=== PATIENT | male | born 1945 | race African-American/Black ===

== ENCOUNTER 2017-01-11 16:37 | Inpatient (IN) | payer OTHER ==
[2017-01-11 18:34] VITALS: BMI 21.2
--- NOTE | 2017-01-11 19:42 | HP ---
CIWA Score - CIWA Score Nausea/Vomitin-Mild Nausea/No Vomiting (RELEASED FROM [facility] 01/11) Muscle Tremors: 3 Anxiety: 3 Agitation: 3 Paroxysmal Sweats: 1-Minimal Palms Moist Orientation: 3-Disoriented Date>2 days Tacttile Disturbances: 0-None Auditory Disturbances: 0-None Visual Disturbances: 0-None Headache: 2-Mild CIWA-Ar Total Score: 16 Admission ROS BHS - HPI Chief Complaint: WITHDRAWAL SX Allergies/Adverse Reactions: Allergies Allergy/AdvReac Type Severity Reaction Status Date / Time pork derived (porcine) Allergy Intermediate Vomiting Verified 01/11/17 18:36 Pork/Porcine Containing Allergy Intermediate Vomiting Verified 01/11/17 18:36 Products History of Present Illness: 71 YEARS OLD MALE WITH LONG HISTORY OF ALCOHOL DEPENDENCE, HAS HYPERTENSION, ATRIAL FIBRILLATION, BPH, DEPRESSION IS ADMITTED TO DETOX DISCHARGED FROM [facility] 01/11/17, BEEN TREATED FOR ALCOHOL INTOXICATION WELL ATRIAL FIBRILATION AND HYERTENSION BPH AND DEPRESSION Exam Limitations: No Limitations - Ebola screening Have you traveled outside of the country in the last 21 days: No Have you had contact with anyone from an Ebola affected area: No Have you been sick,other than usual withdrawal symptoms: No Do you have a fever: No - Review of Systems Constitutional: Chills, Loss of Appetite, Changes in sleep, Unexplained wgt Loss EENT: reports: No Symptoms Reported Respiratory: reports: No Symptoms reported Cardiac: reports: Irregular Heart Rate, Palpitations GI: reports: Nausea, Poor Appetite, Poor Fluid Intake, Abdominal cramping : reports: Dysuria Musculoskeletal: reports: No Symptoms Reported Integumentary: reports: Dryness Neuro: reports: Tremors Endocrine: reports: No Symptoms Reported Hematology: reports: Blood Clots (HIGH RISK) Psychiatric: reports: Judgement Intact, Depressed Other Systems: Reviewed and Negative Patient History - Patient Medical History Hx Anemia: Yes Hx Asthma: No Hx Chronic Obstructive Pulmonary Disease (COPD): No Hx Cancer: No Hx Cardiac Disorders: No Hx Congestive Heart Failure: No Hx Hypertension: No Hx Hypercholesterolemia: No Hx Pacemaker: No HX Cerebrovascular Accident: No Hx Seizures: No Hx Dementia: No Hx Diabetes: No Hx Gastrointestinal Disorders: No Hx Liver Disease: No Hx Genitourinary Disorders: No Hx Sexually Transmitted Disorders: No Hx Renal Disease (ESRD): No Hx Thyroid Disease: No Hx Human Immunodeficiency Virus (HIV): No Hx Hepatitis C: No Hx Depression: Yes Hx Suicide Attempt: No Hx Bipolar Disorder: No Hx Schizophrenia: No - Patient Surgical History Past Surgical History: No Hx Neurologic Surgery: No Hx Cataract Extraction: No Hx Cardiac Surgery: No Hx Lung Surgery: No Hx Breast Surgery: No Hx Breast Biopsy: No Hx Abdominal Surgery: Yes (RIGHT HERNIA REPAIRED 50 YEARS OLD) Hx Appendectomy: No Hx Cholecystectomy: No Hx Genitourinary Surgery: No Hx Orthopedic Surgery: No Anesthesia Reaction: No - PPD History Previous Implant?: Yes Documented Results: Negative w/o proof Implanted On Prior [facility] Admission?: No PPD to be Administered?: Yes - Smoking Cessation Smoking history: Never smoked Aproximately how many cigarettes per day: 0 Hx Chewing Tobacco Use: No Initiated information on smoking cessation: No - Substance & Tx. History Hx Alcohol Use: Yes Hx Substance Use: No Substance Use Type: Alcohol Hx Substance Use Treatment: Yes - Substances Abused Alcohol Route: Oral Frequency: Daily Amount used: LIQUOR- 2 PINTS Age of first use: 3 Date of Last Use: 01/10/17 Family Disease History - Family Disease History Family Disease History: Other: Father (NO CONTACT X 20 YEARS), Mother () Admission Physical Exam BHS - Vital Signs Vital Signs: Vital Signs - 24 hr 01/11/17 18:30 Temperature 97.3 F L Pulse Rate 101 H Respiratory 20 Rate Blood Pressure 154/77 - Physical General Appearance: Yes: Appropriately Dressed, Mild Distress, Thin, Tremorous, Irritable, Sweating, Anxious HEENTM: Yes: Hearing grossly Normal, Normal ENT Inspection, Normocephalic, Normal Voice Respiratory: Yes: Chest Non-Tender, Lungs Clear, Normal Breath Sounds, No Respiratory Distress, No Accessory Muscle Use Neck: Yes: Supple, Trachea in good position Breast: Yes: Breasts Symetrical Cardiology: Yes: S1, S2, Tachycardia, Irregularly Irregular, Other (ATRIAL FIBRILATION) Abdominal: Yes: Non Tender, Soft Genitourinary: Yes: Within Normal Limits Back: Yes: Normal Inspection Musculoskeletal: Yes: full range of Motion, Gait Steady, Joint Stiffness (KNEES) Extremities: Yes: Normal Range of Motion, Non-Tender, Tremors Neurological: Yes: Alert, Motor Strength 5/5, Normal Response, Depressed Affect Integumentary: Yes: Dry, Warm Lymphatic: Yes: Within Normal Limits - Diagnostic (1) Alcohol dependence with uncomplicated withdrawal Current Visit: Yes Status: Acute (2) Hypertension Current Visit: Yes Status: Acute Qualifiers: Hypertension type: essential hypertension Qualified Code(s): I10 - Essential (primary) hypertension (3) Atrial fibrillation and flutter Current Visit: Yes Status: Acute (4) BPH (benign prostatic hyperplasia) Current Visit: Yes Status: Acute Qualifiers: Prostatic enlargement morphology: non-nodular Lower urinary tract symptom presence: symptoms present Qualified Code(s): N40.1 - Enlarged prostate with lower urinary tract symptoms (5) Tachyarrhythmia Current Visit: Yes Status: Acute Comment: ASPIRIN Cleared for Admission S - Detox or Rehab [facility] Level of Care: Medically Managed Detox Regimen/Protocol: Librium [facility] Breath Alcohol Content Breath Alcohol Content: 0 Urine Drug Screen - Results Urine Drug Screen Results: BZO-Benzodiazepines
[2017-01-11] MEDS ORDERED: ACETAMINOPHEN 325 MG TABLET (FP) PO PRN (19:51)
[2017-01-11] MEDS ORDERED: guaiFENesin/D-METHORPHAN HB 10 ML UNIT-DOSE CUPS PO PRN (19:51)
[2017-01-11] MEDS ORDERED: diphenhydrAMINE HCL 50 MG CAPSULE PO PRN (19:51)
[2017-01-11] MEDS ORDERED: MAGNESIUM CITRATE 300 ML BOTTLE PO PRN (19:51)
[2017-01-11] MEDS ORDERED: chlordiazePOXIDE HCL 25 MG CAPSULE PO PRN (19:51)
[2017-01-11] MEDS ORDERED: MAGNESIUM HYDROX 2400MG/30ML ORAL SUSPENSION 30 ML CUP PO PRN (19:51)
[2017-01-11] MEDS ORDERED: LOPERAMIDE HCL 2 MG CAPSULE PO PRN (19:51)
[2017-01-11] MEDS ORDERED: hydrOXYzine PAMOATE 50 MG CAPSULE (FP) PO PRN (19:51)
[2017-01-11] MEDS ORDERED: P-EPHED 60MG/TRIPROLIDI 2.5MG TABLET PO PRN (19:51)
[2017-01-11] MEDS ORDERED: MAG HYDROX/AL HYDROX/SIMETH 30 ML UNIT-DOSE CUP PO PRN (19:51)
[2017-01-11] MEDS ORDERED: MENTHOL/PHENOL 1 EACH UD MM PRN (19:51)
[2017-01-11] MEDS ORDERED: COLLOIDAL OATMEAL 1 BAR EACH TP PRN (20:02)
[2017-01-11] MEDS: amLODIPine BESYLATE 5 MG TABLET (FP) PO SCH (22:31)
[2017-01-11] MEDS: THIAMINE HCL 100 MG TABLET (FP) PO SCH (22:32)
[2017-01-11 22:50] LABS: URINE APPEARANCE CLOUDY; URINE BILIRUBIN NEGATIVE (NEGATIVE); URINE BLOOD NEGATIVE (NEGATIVE); URINE COLOR YELLOW; URINE GLUCOSE (UA) NEGATIVE (NEGATIVE); URINE KETONE NEGATIVE (NEGATIVE); URINE NITRITE NEGATIVE (NEGATIVE); URINE PROTEIN NEGATIVE (NEGATIVE); URINE UROBILINOGEN NEGATIVE E.U./dl (0.2-1.0)
[2017-01-11 22:51] LABS: URINE LEUK ESTERASE 3+ (NEGATIVE)
[2017-01-11] MEDS: MINERAL OIL/PETROLAT/WATER TOPICAL CREAM 113 GM JAR TP SCH (22:55)
[2017-01-11 22:58] LABS: URINE BACTERIA RARE /hpf (NONE SEEN); URINE MUCUS RARE; URINE RBC 23 /hpf (0-3); URINE WBC 536 /hpf (3-5)
[2017-01-11] MEDS: chlordiazePOXIDE HCL 25 MG CAPSULE PO SCH (23:55)
[2017-01-12] MEDS: chlordiazePOXIDE HCL 25 MG CAPSULE PO SCH ×4 (05:18→22:17)
[2017-01-12 09:51] LABS: MCH 36.1 pg (25.7-33.7); MCHC 32.5 g/dl (32.0-35.9); MEAN PLT VOLUME 8.5 fl (7.5-11.1); PLATELET COUNT 254 K/MM3 (134-434); RDW 14.4 % (11.9-15.9); WHITE BLOOD COUNT 7.1 K/mm3 (4.0-10.0)
[2017-01-12] MEDS ORDERED: amLODIPine BESYLATE 5 MG TABLET (FP) PO SCH ×2 (10:00)
[2017-01-12] MEDS: amLODIPine BESYLATE 5 MG TABLET (FP) PO SCH (10:03)
[2017-01-12] MEDS: PRENATAL VITAMINS W/ FOLIC ACID TABLET (FP) PO SCH (10:03)
[2017-01-12] MEDS: ASPIRIN 81 MG CHEWABLE TABLETS PO SCH (10:03)
[2017-01-12 10:20] LABS: ALBUMIN 2.9 g/dl (3.4-5.0); ALK PHOS 79 U/L (45-117); ANION GAP 12 (8-16); BILIRUBIN,TOTAL 0.2 mg/dL (0.2-1.0); CALCIUM 8.9 mg/dL (8.5-10.1); CO2 26 mmol/L (21-32); CREATININE 0.8 mg/dL (0.7-1.3); GLUCOSE,RANDOM 110 mg/dL (74-106); SGOT/AST 22 U/L (15-37); SGPT/ALT 19 U/L (12-78); TOT PROT 6.8 g/dl (6.4-8.2)
--- NOTE | 2017-01-12 10:44 | EKG ---
Test Reason : Blood Pressure : / mmHG Vent. Rate : 083 BPM Atrial Rate : 083 BPM P-R Int : 134 ms QRS Dur : 068 ms QT Int : 404 ms P-R-T Axes : 062 037 060 degrees QTc Int : 474 ms SINUS RHYTHM PREMATURE VENTRICULAR COMPLEXES AND PREMATURE ATRIAL COMPLEX NONSPECIFIC ST AND T WAVE ABNORMALITY ABNORMAL ECG WHEN COMPARED WITH ECG OF 11-JAN-2017 21:06, NO SIGNIFICANT CHANGE WAS FOUND Confirmed by RUFINA GAMBOA, WISAM ([id number]) on 01/12/2017 10:44:39 AM Referred By: Confirmed By:WISAM ALMARAZ MD
--- NOTE | 2017-01-12 10:46 | EKG ---
Test Reason : Blood Pressure : / mmHG Vent. Rate : 091 BPM Atrial Rate : 091 BPM P-R Int : 132 ms QRS Dur : 070 ms QT Int : 408 ms P-R-T Axes : 068 038 046 degrees QTc Int : 501 ms SINUS RHYTHM WITH PREMATURE SUPRAVENTRICULAR COMPLEXES AND PREMATURE VENTRICULAR COMPLEXES NONSPECIFIC ST AND T WAVE ABNORMALITY PROLONGED QT ABNORMAL ECG NO PREVIOUS ECGS AVAILABLE Confirmed by WISAM ALMARAZ MD ([id number]) on 01/12/2017 10:46:21 AM Referred By: Confirmed By:WISAM ALMARAZ MD
--- NOTE | 2017-01-12 10:51 | PN ---
[facility] CIWA - CIWA Score Nausea/Vomitin-No Nausea/No Vomiting Muscle Tremors: 4-Moderate,w/Arms Extend Anxiety: 3 Agitation: 4-Moderately Restless Paroxysmal Sweats: 3 Orientation: 0-Oriented Tacttile Disturbances: 0-None Auditory Disturbances: 0-None Visual Disturbances: 0-None Headache: 1-Very Mild CIWA-Ar Total Score: 15 BHS Progress Note (SOAP) Subjective: agitation anxiety sweats interrupted sleep Objective: 01/12/17 10:49 Vital Signs Temperature 97.5 F L 01/12/17 09:56 Pulse Rate 80 01/12/17 09:56 Respiratory Rate 18 01/12/17 09:56 Blood Pressure 117/74 01/12/17 09:56 O2 Sat by Pulse Oximetry (%) Laboratory Tests 01/11/17 01/12/17 01/12/17 22:40 07:00 07:00 WBC 7.1 RBC 2.56 L Hgb 9.2 L Hct 28.4 L MCV 111.0 H MCHC 32.5 RDW 14.4 Plt Count 254 MPV 8.5 Sodium 143 Potassium 4.1 Chloride 105 Carbon Dioxide 26 Anion Gap 12 BUN 13 Creatinine 0.8 Creat Clearance w eGFR > 60 Random Glucose 110 H Calcium 8.9 Total Bilirubin 0.2 AST 22 ALT 19 Alkaline Phosphatase 79 Total Protein 6.8 Albumin 2.9 L Urine Color Yellow Urine Appearance Cloudy Urine pH 5.0 Ur Specific [place] 1.015 Urine Protein Negative Urine Glucose (UA) Negative Urine Ketones Negative Urine Blood Negative Urine Nitrite Negative Urine Bilirubin Negative Urine Urobilinogen Negative Ur Leukocyte Esterase 3+ H Urine RBC 23 Urine WBC 536 Urine Bacteria Rare Urine Mucus Rare repeat u/a awake/alert ambulating no acute distress Assessment: 01/12/17 10:50 withdrawal sx Plan: continue detox increase fluids f/u pending u/a ordered
[2017-01-12] MEDS: FINASTERIDE 5 MG TABLET (FP) PO SCH (12:59)
--- NOTE | 2017-01-12 19:12 | CONSULT ---
[facility] Psychiatric Consult - Data Date of interview: 01/12/17 Admission source: [facility] Identifying data: First admission to [facility] for this 71 y/o AA male seeking detox treatment on for alcohol dependence.Patient is ,a father of four,domiciled,unemployed and supported on SSI benefits. Substance Abuse History: - Smoking Cessation. Smoking history: Never smoked. Aproximately how many cigarettes per day: 0. Hx Chewing Tobacco Use: No. Initiated information on smoking cessation: No. - Substance & Tx. History. Hx Alcohol Use: Yes. Hx Substance Use: No. Substance Use Type: Alcohol. Hx Substance Use Treatment: Yes. - Substances Abused. Alcohol. Route: Oral. Frequency: Daily. Amount used: LIQUOR- 2 PINTS. Age of first use: 3. Date of Last Use: 01/10/17. Confirmed by patient. Medical History: Anemia,benign prostatic hyperplasia and a history of right inguinal herniorraphy. Psychiatric History: Patient denies. Physical/Sexual Abuse/Trauma History: Patient denies. Additional Comment: Urine Drug Screen Results: BZO-Benzodiazepines.Noted. Mental Status Exam - Mental Status Exam Alert and Oriented to: Time, Place, Person Cognitive Function: Good Patient Appearance: Disheveled Mood: Hopeful, Euthymic Affect: Appropriate, Normal Range Patient Behavior: Appropriate, Cooperative Speech Pattern: Clear, Appropriate Voice Loudness: Normal Thought Process: Goal Oriented Thought Disorder: Not Present Hallucinations: Denies Suicidal Ideation: Denies Homicidal Ideation: Denies Insight/Judgement: Poor Sleep: Well Appetite: Good Muscle strength/Tone: Normal Psychiatric Findings - Problem List ([place] 1, 2,3) (1) Alcohol dependence with uncomplicated withdrawal Current Visit: Yes Status: Acute (2) BPH (benign prostatic hyperplasia) Current Visit: Yes Status: Chronic Qualifiers: Prostatic enlargement morphology: non-nodular Lower urinary tract symptom presence: symptoms present Qualified Code(s): N40.1 - Enlarged prostate with lower urinary tract symptoms (3) Hypertension Current Visit: Yes Status: Chronic Qualifiers: Hypertension type: essential hypertension Qualified Code(s): I10 - Essential (primary) hypertension - Initial Treatment Plan Initial Treatment Plan: Psychoeducation.Detoxification.Observation.
[2017-01-12] MEDS: MINERAL OIL/PETROLAT/WATER TOPICAL CREAM 113 GM JAR TP SCH (22:17)
[2017-01-12] MEDS: THIAMINE HCL 100 MG TABLET (FP) PO SCH (22:18)
[2017-01-13] MEDS: chlordiazePOXIDE HCL 25 MG CAPSULE PO SCH ×3 (06:56→17:39)
[2017-01-13] MEDS: PRENATAL VITAMINS W/ FOLIC ACID TABLET (FP) PO SCH (10:19)
[2017-01-13] MEDS: amLODIPine BESYLATE 5 MG TABLET (FP) PO SCH (10:20)
[2017-01-13] MEDS: FINASTERIDE 5 MG TABLET (FP) PO SCH (10:20)
[2017-01-13] MEDS: ASPIRIN 81 MG CHEWABLE TABLETS PO SCH (10:20)
--- NOTE | 2017-01-13 14:06 | PN ---
[facility] CIWA - CIWA Score Nausea/Vomitin-Mild Nausea/No Vomiting Muscle Tremors: 2 Anxiety: 2 Agitation: 2 Paroxysmal Sweats: 2 Orientation: 0-Oriented Tacttile Disturbances: 2-Mild Itch/Numbness/Burn Auditory Disturbances: 0-None Visual Disturbances: 0-None Headache: 0-None Present CIWA-Ar Total Score: 11 S Progress Note (SOAP) Subjective: bodyaches Objective: 01/13/17 14:03 Vital Signs Temperature 97.1 F L 01/13/17 13:40 Pulse Rate 81 01/13/17 13:40 Respiratory Rate 18 01/13/17 13:40 Blood Pressure 121/69 01/13/17 13:40 O2 Sat by Pulse Oximetry (%) Laboratory Tests 01/11/17 01/12/17 01/12/17 22:40 07:00 07:00 WBC 7.1 RBC 2.56 L Hgb 9.2 L Hct 28.4 L MCV 111.0 H MCHC 32.5 RDW 14.4 Plt Count 254 MPV 8.5 Sodium 143 Potassium 4.1 Chloride 105 Carbon Dioxide 26 Anion Gap 12 BUN 13 Creatinine 0.8 Creat Clearance w eGFR > 60 Random Glucose 110 H Calcium 8.9 Total Bilirubin 0.2 AST 22 ALT 19 Alkaline Phosphatase 79 Total Protein 6.8 Albumin 2.9 L Urine Color Yellow Urine Appearance Cloudy Urine pH 5.0 Ur Specific [place] 1.015 Urine Protein Negative Urine Glucose (UA) Negative Urine Ketones Negative Urine Blood Negative Urine Nitrite Negative Urine Bilirubin Negative Urine Urobilinogen Negative Ur Leukocyte Esterase 3+ H Urine RBC 23 Urine WBC 536 Urine Bacteria Rare Urine Mucus Rare RPR Titer 01/12/17 07:00 WBC RBC Hgb Hct MCV MCHC RDW Plt Count MPV Sodium Potassium Chloride Carbon Dioxide Anion Gap BUN Creatinine Creat Clearance w eGFR Random Glucose Calcium Total Bilirubin AST ALT Alkaline Phosphatase Total Protein Albumin Urine Color Urine Appearance Urine pH Ur Specific [place] Urine Protein Urine Glucose (UA) Urine Ketones Urine Blood Urine Nitrite Urine Bilirubin Urine Urobilinogen Ur Leukocyte Esterase Urine RBC Urine WBC Urine Bacteria Urine Mucus RPR Titer Nonreactive pt aox3 in nad lying in bed Assessment: 01/13/17 14:04 withdrawl sx's anemia -megaloblastic 01/13/17 14:05 Plan: cont. detox increase fluids b12, folate, fe,
[2017-01-13] MEDS: THIAMINE HCL 100 MG TABLET (FP) PO SCH (22:10)
[2017-01-13] MEDS: chlordiazePOXIDE 5 MG CAPSULE PO SCH (22:10)
[2017-01-13] MEDS: MINERAL OIL/PETROLAT/WATER TOPICAL CREAM 113 GM JAR TP SCH (22:49)
--- NOTE | 2017-01-13 22:58 | PN ---
BHS Progress Note Note: positive ppd chest x ray continue detox
[2017-01-14] MEDS: chlordiazePOXIDE 5 MG CAPSULE PO SCH ×3 (06:17→17:55)
[2017-01-14] MEDS: PRENATAL VITAMINS W/ FOLIC ACID TABLET (FP) PO SCH (10:08)
[2017-01-14] MEDS: ASPIRIN 81 MG CHEWABLE TABLETS PO SCH (10:08)
[2017-01-14] MEDS: amLODIPine BESYLATE 5 MG TABLET (FP) PO SCH (10:08)
[2017-01-14 10:09] LABS: MCH 37.1 pg (25.7-33.7); MCHC 33.2 g/dl (32.0-35.9); MEAN CELL VOLUME 111.8 fl (80-96); MEAN PLT VOLUME 8.7 fl (7.5-11.1); PLATELET COUNT 263 K/MM3 (134-434); WHITE BLOOD COUNT 7.5 K/mm3 (4.0-10.0)
[2017-01-14] MEDS: FINASTERIDE 5 MG TABLET (FP) PO SCH (10:09)
--- NOTE | 2017-01-14 13:00 | PN ---
BHS Progress Note (SOAP) Subjective: feeling better very little sweats Objective: 01/14/17 12:58 Vital Signs Temperature 97.3 F L 01/14/17 09:14 Pulse Rate 92 H 01/14/17 09:14 Respiratory Rate 16 01/14/17 09:14 Blood Pressure 140/64 01/14/17 09:14 O2 Sat by Pulse Oximetry (%) Laboratory Tests 01/11/17 01/12/17 01/12/17 22:40 07:00 07:00 WBC 7.1 RBC 2.56 L Hgb 9.2 L Hct 28.4 L MCV 111.0 H MCHC 32.5 RDW 14.4 Plt Count 254 MPV 8.5 Neutrophils % Lymphocytes % Sodium 143 Potassium 4.1 Chloride 105 Carbon Dioxide 26 Anion Gap 12 BUN 13 Creatinine 0.8 Creat Clearance w eGFR > 60 Random Glucose 110 H Calcium 8.9 Total Bilirubin 0.2 AST 22 ALT 19 Alkaline Phosphatase 79 Total Protein 6.8 Albumin 2.9 L Vitamin B12 Serum Folate Urine Color Yellow Urine Appearance Cloudy Urine pH 5.0 Ur Specific [place] 1.015 Urine Protein Negative Urine Glucose (UA) Negative Urine Ketones Negative Urine Blood Negative Urine Nitrite Negative Urine Bilirubin Negative Urine Urobilinogen Negative Ur Leukocyte Esterase 3+ H Urine RBC 23 Urine WBC 536 Urine Bacteria Rare Urine Mucus Rare RPR Titer 01/12/17 01/14/17 01/14/17 07:00 07:00 07:00 WBC 7.5 RBC 2.75 L Hgb 10.2 L D Hct 30.7 L MCV 111.8 H MCHC 33.2 RDW 15.0 Plt Count 263 MPV 8.7 Neutrophils % Y Lymphocytes % Y Sodium Potassium Chloride Carbon Dioxide Anion Gap BUN Creatinine Creat Clearance w eGFR Random Glucose Calcium Total Bilirubin AST ALT Alkaline Phosphatase Total Protein Albumin Vitamin B12 418 Serum Folate 17 Urine Color Urine Appearance Urine pH Ur Specific [place] Urine Protein Urine Glucose (UA) Urine Ketones Urine Blood Urine Nitrite Urine Bilirubin Urine Urobilinogen Ur Leukocyte Esterase Urine RBC Urine WBC Urine Bacteria Urine Mucus RPR Titer Nonreactive iron lab result pending awake/alert ambulating no acute distress Assessment: 01/14/17 12:59 withdrawal sx Plan: continue detox increase fluids d/c in am
[2017-01-14 14:40] LABS: URINE APPEARANCE SLCLOUDY; URINE BILIRUBIN NEGATIVE (NEGATIVE); URINE BLOOD NEGATIVE (NEGATIVE); URINE COLOR YELLOW; URINE GLUCOSE (UA) NEGATIVE (NEGATIVE); URINE KETONE NEGATIVE (NEGATIVE); URINE NITRITE NEGATIVE (NEGATIVE); URINE PROTEIN NEGATIVE (NEGATIVE); URINE UROBILINOGEN NEGATIVE E.U./dl (0.2-1.0)
[2017-01-14 14:47] LABS: URINE LEUK ESTERASE 3+ (NEGATIVE)
[2017-01-14 14:55] LABS: URINE BACTERIA RARE /hpf (NONE SEEN); URINE MUCUS RARE; URINE RBC 3 /hpf (0-3); URINE WBC 87 /hpf (3-5)
[2017-01-14 15:26] LABS: PLATELET ESTIMATE ADEQUATE (NORMAL)
[2017-01-14 15:28] LABS: ANISOCYTOSIS 3+
[2017-01-14] MEDS ORDERED: FERROUS SO4 325 MG TABLET (FP) PO SCH (17:30)
[2017-01-14] MEDS: chlordiazePOXIDE HCL 10 MG CAPSULE PO SCH (22:15)
[2017-01-14] MEDS: THIAMINE HCL 100 MG TABLET (FP) PO SCH (22:15)
[2017-01-14] MEDS: MINERAL OIL/PETROLAT/WATER TOPICAL CREAM 113 GM JAR TP SCH (22:49)
[2017-01-15 06:06] LABS: SERUM IRON 56 ug/dL (38-169); TOTAL IRON BINDING CAPACITY 333 ug/dL (250-450); UIBC 277 ug/dL (111-343)
[2017-01-15] MEDS: chlordiazePOXIDE HCL 10 MG CAPSULE PO SCH (06:13)
--- NOTE | 2017-01-15 09:05 | DS ---
[facility] Detox Discharge Summary Admission Date: 01/11/17 Discharge Date: 01/15/17 - History Present History: Alcohol Dependence Pertinent Past History: see below - Physical Exam Results Vital Signs: Vital Signs Temperature 97.9 F 01/15/17 06:00 Pulse Rate 101 H 01/15/17 06:00 Respiratory Rate 18 01/15/17 06:00 Blood Pressure 105/61 01/15/17 06:00 O2 Sat by Pulse Oximetry (%) Pertinent Admission Physical Exam Findings: admitted in acute withdrawal medically stable on dc dc today detox completed Laboratory Tests 01/11/17 01/12/17 01/12/17 22:40 07:00 07:00 WBC 7.1 RBC 2.56 L Hgb 9.2 L Hct 28.4 L MCV 111.0 H MCHC 32.5 RDW 14.4 Plt Count 254 MPV 8.5 Neutrophils % Lymphocytes % Monocytes % Eosinophils % Basophils % Differential Comment Platelet Estimate Anisocytosis Macrocytosis Sodium 143 Potassium 4.1 Chloride 105 Carbon Dioxide 26 Anion Gap 12 BUN 13 Creatinine 0.8 Creat Clearance w eGFR > 60 Random Glucose 110 H Calcium 8.9 Iron TIBC Iron Saturation Total Bilirubin 0.2 AST 22 ALT 19 Alkaline Phosphatase 79 Total Protein 6.8 Albumin 2.9 L Vitamin B12 Serum Folate Urine Color Yellow Urine Appearance Cloudy Urine pH 5.0 Ur Specific [place] 1.015 Urine Protein Negative Urine Glucose (UA) Negative Urine Ketones Negative Urine Blood Negative Urine Nitrite Negative Urine Bilirubin Negative Urine Urobilinogen Negative Ur Leukocyte Esterase 3+ H Urine RBC 23 Urine WBC 536 Urine Bacteria Rare Urine Mucus Rare RPR Titer 01/12/17 01/14/17 01/14/17 07:00 07:00 07:00 WBC 7.5 RBC 2.75 L Hgb 10.2 L D Hct 30.7 L MCV 111.8 H MCHC 33.2 RDW 15.0 Plt Count 263 MPV 8.7 Neutrophils % 38.0 L Lymphocytes % 38.0 Monocytes % 11.0 H Eosinophils % 6.0 H Basophils % 2.0 Differential Comment Manual diff done Platelet Estimate Adequate Anisocytosis 3+ Macrocytosis 2+ Sodium Potassium Chloride Carbon Dioxide Anion Gap BUN Creatinine Creat Clearance w eGFR Random Glucose Calcium Iron 56 TIBC 333 Iron Saturation 17 Total Bilirubin AST ALT Alkaline Phosphatase Total Protein Albumin Vitamin B12 Serum Folate Urine Color Urine Appearance Urine pH Ur Specific [place] Urine Protein Urine Glucose (UA) Urine Ketones Urine Blood Urine Nitrite Urine Bilirubin Urine Urobilinogen Ur Leukocyte Esterase Urine RBC Urine WBC Urine Bacteria Urine Mucus RPR Titer Nonreactive 01/14/17 01/14/17 07:00 10:50 WBC RBC Hgb Hct MCV MCHC RDW Plt Count MPV Neutrophils % Lymphocytes % Monocytes % Eosinophils % Basophils % Differential Comment Platelet Estimate Anisocytosis Macrocytosis Sodium Potassium Chloride Carbon Dioxide Anion Gap BUN Creatinine Creat Clearance w eGFR Random Glucose Calcium Iron TIBC Iron Saturation Total Bilirubin AST ALT Alkaline Phosphatase Total Protein Albumin Vitamin B12 418 Serum Folate 17 Urine Color Yellow Urine Appearance Slcloudy Urine pH 6.0 Ur Specific [place] 1.012 Urine Protein Negative Urine Glucose (UA) Negative Urine Ketones Negative Urine Blood Negative Urine Nitrite Negative Urine Bilirubin Negative Urine Urobilinogen Negative Ur Leukocyte Esterase 3+ H Urine RBC 3 Urine WBC 87 Urine Bacteria Rare Urine Mucus Rare RPR Titer Vital Signs - 24 hr 01/14/17 01/14/17 01/14/17 09:14 13:53 18:20 Temperature 97.3 F L 97.7 F 98.2 F Pulse Rate 92 H 105 H 88 Respiratory 16 20 18 Rate Blood Pressure 140/64 130/63 121/50 01/14/17 01/15/17 01/15/17 21:47 00:30 03:30 Temperature 97.5 F L Pulse Rate 97 H Respiratory 16 18 16 Rate Blood Pressure 125/70 01/15/17 06:00 Temperature 97.9 F Pulse Rate 101 H Respiratory 18 Rate Blood Pressure 105/61 - Treatment Hospital Course: Detox Protocol Followed, Detoxed Safely, Responded well, Discharged Condition Good, Rehab Referral Accepted - Medication Discharge Medications: Ambulatory Orders Amlodipine Besylate [Norvasc -] 5 mg PO DAILY #0 tablet 01/15/17 Aspirin [ASA -] 81 mg PO DAILY #0 tab.chew 01/15/17 Finasteride [Proscar -] 5 mg PO DAILY #0 tablet 01/15/17 - Diagnosis (1) Alcohol dependence with uncomplicated withdrawal Current Visit: Yes Status: Acute (2) Atrial fibrillation and flutter Current Visit: Yes Status: Chronic (3) PPD positive Current Visit: Yes Status: Chronic (4) Tachyarrhythmia Current Visit: Yes Status: Chronic (5) BPH (benign prostatic hyperplasia) Current Visit: Yes Status: Chronic Qualifiers: Prostatic enlargement morphology: non-nodular Lower urinary tract symptom presence: symptoms present Qualified Code(s): N40.1 - Enlarged prostate with lower urinary tract symptoms (6) Hypertension Current Visit: Yes Status: Chronic Qualifiers: Hypertension type: essential hypertension Qualified Code(s): I10 - Essential (primary) hypertension - AMA Did Patient Leave Against Medical Advice: No
[2017-01-15 10:17] VITALS: BP 115/56; PULSE 89; TEMP 98
[2017-01-15] MEDS: ASPIRIN 81 MG CHEWABLE TABLETS PO SCH (10:44)
[2017-01-15] MEDS: PRENATAL VITAMINS W/ FOLIC ACID TABLET (FP) PO SCH (10:44)
[2017-01-15] MEDS: amLODIPine BESYLATE 5 MG TABLET (FP) PO SCH (10:44)
[2017-01-15] MEDS: FINASTERIDE 5 MG TABLET (FP) PO SCH (10:45)
== END 2017-01-15 11:10 | disposition home or self-care (01) | DRG 897 ==
LOC: YASAS 16:37 → Y6N 19:43
PROVIDERS: ADMIT Internal Medicine Addiction Medicine; ATTEND Internal Medicine Addiction Medicine
PROC: HZ2ZZZZ Detoxification Services for Substance Abuse Treatment (ICD-10-PCS; principal; 2017-01-15)
DX: F10.230 Alcohol dependence with withdrawal, uncomplicated (principal); I48.92 Unspecified atrial flutter; I48.91 Unspecified atrial fibrillation; R00.0 Tachycardia, unspecified; I10 Essential (primary) hypertension; N40.1 Benign prostatic hyperplasia with lower urinary tract symptoms; R76.11 Nonspecific reaction to tuberculin skin test without active tuberculosis
CPT/HCPCS: 36415; 71020-TC; 80053; 81003; 81015; 82607; 82746; 83540; 83550; 85025; 85027; 86593; 93005; 93010